=== PATIENT | male | born 1950 | race Caucasian/White ===

== ENCOUNTER 2018-03-21 10:47 | Emergency (ER) | payer OTHER ==
--- NOTE | 2018-03-21 13:04 | RAD REPORT ---
EXAM DESCRIPTION: CT - [id number] - 03/21/2018 12:53 pm CLINICAL HISTORY: Trauma, head and neck injury. History of fall COMPARISON: No comparisons TECHNIQUE: Axial 5 mm thick images of the head were obtained. Axial 2 mm thick images of the cervical spine were obtained with sagittal and coronal reconstruction images generated and reviewed. All CT scans are performed using dose optimization technique as appropriate and may include automated exposure control or mA/KV adjustment according to patient size. FINDINGS: CT HEAD WITHOUT CONTRAST: No acute hemorrhage, hydrocephalus or extra-axial collection is identified.No areas of brain edema or midline shift. The paranasal sinuses and mastoids are clear.The calvarium is intact. CT CERVICAL SPINE WITHOUT CONTRAST: No fracture or subluxation.Moderate mid and lower cervical degenerative changes.No prevertebral soft tissues swelling is identified. IMPRESSION: No acute intracranial or cervical spine findings. Mid and lower cervical spondylosis.
--- NOTE | 2018-03-21 14:06 | ER ---
Nurse's Notes [facility] Name: Payam Baeza Age: 67 yrs Sex: Male : 1950 Arrival Date: 03/21/2018 Time: 10:50 Bed Treatment Private MD: Unknown, Unknown Diagnosis: Laceration without foreign body of unspecified part of head Presentation: 03/21 10:52 Presenting complaint: Patient states: at about 0230 this morning I tripped in the fields la1 on the way to the bathroom and cut my scalp on the wall. Pt denies LOC. Transition of care: patient was not received from another setting of care. Onset of symptoms was March 21, 2018. Risk Assessment: Do you want to hurt yourself or someone else? Patient reports no desire to harm self or others. Initial Sepsis Screen: Does the patient meet any 2 criteria? No. Patient's initial sepsis screen is negative. Does the patient have a suspected source of infection? No. Patient's initial sepsis screen is negative. Care prior to arrival: None. 10:52 Method Of Arrival: Ambulatory la1 10:52 Acuity: ANNY 4 la1 Triage Assessment: 14:20 General: Appears in no apparent distress. Behavior is calm, cooperative. iw Historical: - Allergies: 10:53 No Known Allergies; la1 - PMHx: 10:53 None; la1 - Immunization history:: Adult Immunizations up to date. - Social history:: Smoking status: Patient/guardian denies using tobacco. - Ebola Screening: : No symptoms or risks identified at this time. Screenin:30 Abuse screen: Denies threats or abuse. Denies injuries from another. Nutritional iw screening: No deficits noted. Tuberculosis screening: No symptoms or risk factors identified. Fall Risk None identified. Assessment: 13:30 General: Appears in no apparent distress. comfortable, Behavior is calm, cooperative. iw Pain: Complains of pain in back of head. Neuro: Level of Consciousness is awake, alert, obeys commands, Oriented to person, place, time, situation, Moves all extremities. Full function. Cardiovascular: Patient's skin is warm and dry. Respiratory: Respiratory effort is even, unlabored, Respiratory pattern is regular. Derm: Skin is intact, is healthy with good turgor. Musculoskeletal: Range of motion: intact in all extremities. Injury Description: Laceration sustained to back of head is 0.5 to 2.5 cm long. Vital Signs: 10:53 BP 124 / 73; Pulse 68; Resp 18; Temp 97.4; Pulse Ox 98% on R/A; Weight 90.72 kg; Height la1 5 ft. 11 in. (180.34 cm); 10:53 Body Mass Index 27.89 (90.72 kg, 180.34 cm) la1 ED Course: 10:50 Patient arrived in ED. mr 10:51 Unknown, Unknown is Private Physician. mr 10:53 Triage completed. la1 10:54 Arm band placed on right wrist. la1 12:22 Melida Martinez, RN is Primary Nurse. iw 12:30 Farrukh Vera NP is PHCP. pm1 12:30 Alexandru Vela MD is Attending Physician. pm1 12:[address] via wheelchair. kc3 12:51 CT completed. Patient moved back from CT. bq 12:52 CT Head C Spine In Process Unspecified. EDMS 13:30 Patient has correct armband on for positive identification. iw 14:20 No provider procedures requiring assistance completed. Patient did not have IV access iw during this emergency room visit. Administered Medications: No medications were administered Outcome: 14:06 Discharge ordered by MD. pm1 14:21 Discharged to home ambulatory, with family. iw 14:21 Condition: good 14:21 Discharge instructions given to patient, Instructed on discharge instructions, follow up and referral plans. Demonstrated understanding of instructions, follow-up care. 14:22 Patient left the ED. iw Signatures: Dispatcher [employer] EDWY Kim Emmanuel mr Duran Maia Melida Martinez RN RN iw Gene Grajeda RN RN la1 Farrukh Vera NP NURSING ATTENDANT pm1 Tonia Villanueva kc3
--- NOTE | 2018-03-21 14:06 | EDPHYS ---
Physician Documentation [facility] Name: Payam Baeza Age: 67 yrs Sex: Male : 1950 Arrival Date: 03/21/2018 Time: 10:50 Bed Treatment Private MD: Unknown, Unknown ED Physician Alexandru Vela HPI: 03/21 14:00 This 67 yrs old Male presents to ER via Ambulatory with complaints of pm1 Laceration To Head. 14:00 The patient has a laceration occurred at home. The laceration(s) is(are) located on the pm1 back of head. Onset: The symptoms/episode began/occurred this morning. Associated signs and symptoms: Pertinent positives: neck pain, Pertinent negatives: deformity, dizziness, heavy bleeding, loss of consciousness, suspected foreign body. The patient has not experienced similar symptoms in the past. The patient has not recently seen a physician. Patient walking to the restroom and tripped hitting his head against door or wall. No LOC or headache. Positive for right sided neck pain. Historical: - Allergies: 10:53 No Known Allergies; la1 - PMHx: 10:53 None; la1 - Immunization history:: Adult Immunizations up to date. - Social history:: Smoking status: Patient/guardian denies using tobacco. - Ebola Screening: : No symptoms or risks identified at this time. ROS: 14:00 Constitutional: Negative for fever, chills, and weight loss, Eyes: Negative for injury, pm1 pain, redness, and discharge, ENT: Negative for injury, pain, and discharge. 14:00 Neck: Positive for pain with movement, right side of neck. 14:00 Cardiovascular: Negative for chest pain, palpitations, and edema, Respiratory: Negative pm1 for shortness of breath, cough, wheezing, and pleuritic chest pain, Abdomen/GI: Negative for abdominal pain, nausea, vomiting, diarrhea, and constipation, Back: Negative for injury and pain, : Negative for injury, bleeding, discharge, and swelling, MS/Extremity: Negative for injury and deformity, Neuro: Negative for headache, weakness, numbness, tingling, and seizure. 14:00 Skin: Positive for laceration(s), of the right side of the back of head. pm1 Exam: 14:00 Constitutional: This is a well developed, well nourished patient who is awake, alert, pm1 and in no acute distress. Eyes: Pupils equal round and reactive to light, extra-ocular motions intact. Lids and lashes normal. Conjunctiva and sclera are non-icteric and not injected. Cornea within normal limits. Periorbital areas with no swelling, redness, or edema. ENT: Nares patent. No nasal discharge, no septal abnormalities noted. Tympanic membranes are normal and external auditory canals are clear. Oropharynx with no redness, swelling, or masses, exudates, or evidence of obstruction, uvula midline. Mucous membranes moist. 14:00 Chest/axilla: Normal chest wall appearance and motion. Nontender with no deformity. No lesions are appreciated. Cardiovascular: Regular rate and rhythm with a normal S1 and S2. No gallops, murmurs, or rubs. Normal PMI, no JVD. No pulse deficits. Respiratory: Lungs have equal breath sounds bilaterally, clear to auscultation and percussion. No rales, rhonchi or wheezes noted. No increased work of breathing, no retractions or nasal flaring. Abdomen/GI: Soft, non-tender, with normal bowel sounds. No distension or tympany. No guarding or rebound. No evidence of tenderness throughout. Back: No spinal tenderness. No costovertebral tenderness. Full range of motion. Skin: Warm, dry with normal turgor. Normal color with no rashes, no lesions, and no evidence of cellulitis. MS/ Extremity: Pulses equal, no cyanosis. Neurovascular intact. Full, normal range of motion. 14:00 Head/face: Noted is no obvious of injury or deformity except a laceration(s), that is linear, 3 cm(s). 14:00 Neck: External neck: crepitus, is not appreciated, tenderness, of the right posterior aspect of neck and right lateral aspect of neck, C-spine: vertebral tenderness, is not appreciated. Vital Signs: 10:53 BP 124 / 73; Pulse 68; Resp 18; Temp 97.4; Pulse Ox 98% on R/A; Weight 90.72 kg; Height la1 5 ft. 11 in. (180.34 cm); 10:53 Body Mass Index 27.89 (90.72 kg, 180.34 cm) la1 Laceration: 14:00 Wound Repair of 3cm ( 1.2in ) subcutaneous laceration to right side of the back of pm1 head. Linear shaped.. Distal neuro/vascular/tendon intact. Wound prep: Extensive cleansing with hibiclenz by me, Wound irrigation with saline by me, Wound explored extensively, Copious irrigation. Skin closed with 4 1-0 Daphnie using simple sutures and sterile technique. Patient tolerated well. MDM: 12:35 Patient medically screened. pm1 14:05 Data reviewed: vital signs. Data interpreted: Pulse oximetry: on room air is 98 %. pm1 Interpretation: normal. Counseling: I had a detailed discussion with the patient and/or guardian regarding: the historical points, exam findings, and any diagnostic results supporting the discharge/admit diagnosis, radiology results, the need for outpatient follow up, to return to the emergency department if symptoms worsen or persist or if there are any questions or concerns that arise at home. 03/21 12:36 Order name: CT Head C Spine; Complete Time: 13:41 pm1 03/21 12:36 [place] [facility]: Staple gun; Complete Time: 12:39 pm1 Administered Medications: No medications were administered Disposition: 03/21/18 14:06 Discharged to Home. Impression: Laceration without foreign body of unspecified part of head. - Condition is Stable. - Discharge Instructions: Head Injury, Adult, Stitches, [place], or Adhesive Wound Closure. - Medication Reconciliation Form, Thank You Letter form. - Follow up: Emergency Department; When: As needed; Reason: Worsening of condition. Follow up: Private Physician; When: 10 - 14 days; Reason: Recheck today's complaints, Continuance of care, Staple/Suture removal, Re-evaluation by your physician. - Problem is new. - Symptoms have improved. Addendum: 04/01/2018 15:30 Co-signature as Attending Physician, Alexandru Vela MD Available for consultation at p s1 all times. . Signatures: Dispatcher [employer] EDMS Melida Martinez RN RN iw Gene Grajeda RN RN la1 Farrukh Vera, [employer] SUPERVISOR [employer] SUPERVISOR pm1 Alexandru Vela MD MD ps1 Corrections: (The following items were deleted from the chart) 03/21 14:22 14:06 03/21/2018 14:06 Discharged to Home. Impression: Laceration without foreign body iw of unspecified part of head. Condition is Stable. Forms are Medication Reconciliation Form, Thank You Letter, Antibiotic Education, Prescription Opioid Use. Follow up: Emergency Department; When: As needed; Reason: Worsening of condition. Follow up: Private Physician; When: 10 - 14 days; Reason: Recheck today's complaints, Continuance of care, Staple/Suture removal, Re-evaluation by your physician. Problem is new. Symptoms have improved. pm1 22:31 14:00 Cardiovascular: Negative for chest pain, palpitations, and edema, Respiratory: pm1 Negative for shortness of breath, cough, wheezing, and pleuritic chest pain, Abdomen/GI: Negative for abdominal pain, nausea, vomiting, diarrhea, and constipation, Back: Negative for injury and pain, : Negative for injury, bleeding, discharge, and swelling, MS/Extremity: Negative for injury and deformity, Skin: Negative for injury, rash, and discoloration, Neuro: Negative for headache, weakness, numbness, tingling, and seizure, pm1
== END 2018-03-21 14:22 | disposition home or self-care (01) ==
LOC: ER 10:47
PROC: 0JQ00ZZ Repair Scalp Subcutaneous Tissue and Fascia, Open Approach (ICD-10-PCS; principal; 2018-03-21)
DX: S01.01XA Laceration without foreign body of scalp, initial encounter (principal); W18.40XA Slipping, tripping and stumbling without falling, unspecified, initial encounter; W22.8XXA Striking against or struck by other objects, initial encounter
CPT/HCPCS: 70450; 72125; 99284

== ENCOUNTER 2018-04-02 06:18 | Emergency (ER) | payer OTHER ==
--- NOTE | 2018-04-02 06:31 | EDPHYS ---
Physician Documentation [facility] Name: Payam Baeza Age: 67 yrs Sex: Male : 1950 Arrival Date: 04/02/2018 Time: 06:19 Bed 13 Private MD: ED Physician Michael Canseco HPI: 04/02 06:31 This 67 yrs old Male presents to ER via Ambulatory with complaints of Suture jr8 Removal. 06:31 The patient has claudy on the scalp. Previous treatment: The patient was initially jr8 treated 11 day(s) ago. Sutures/claudy progress: The patient has no c/o's. The wound is well-healing with no redness, swelling, discharge, or dehiscence reported. The patient has not experienced similar symptoms in the past. The patient has not recently seen a physician. Historical: - Allergies: 06:28 No Known Allergies; fc - Home Meds: 06:28 Etodolac Oral once daily [Active]; fc - PMHx: 06:28 Arthritis; fc - PSHx: 06:28 Knee surgery; leg surg; arm surg; fc - Immunization history:: Last tetanus immunization: up to date Flu vaccine is up to date. - Social history:: Smoking status: Patient/guardian denies using tobacco, Patient/guardian denies using alcohol, street drugs. - Ebola Screening: : Patient negative for fever greater than or equal to 101.5 degrees Fahrenheit, and additional compatible Ebola Virus Disease symptoms Patient denies exposure to infectious person Patient denies travel to an Ebola-affected area in the 21 days before illness onset. ROS: 06:31 Eyes: Negative for injury, pain, redness, and discharge, ENT: Negative for injury, jr8 pain, and discharge, Neck: Negative for injury, pain, and swelling, Cardiovascular: Negative for chest pain, palpitations, and edema, Respiratory: Negative for shortness of breath, cough, wheezing, and pleuritic chest pain, Abdomen/GI: Negative for abdominal pain, nausea, vomiting, diarrhea, and constipation, Back: Negative for injury and pain, MS/Extremity: Negative for injury and deformity, Neuro: Negative for headache, weakness, numbness, tingling, and seizure. Exam: 06:31 Head/Face: Normocephalic, atraumatic. Eyes: Pupils equal round and reactive to light, jr8 extra-ocular motions intact. Lids and lashes normal. Conjunctiva and sclera are non-icteric and not injected. Cornea within normal limits. Periorbital areas with no swelling, redness, or edema. ENT: Nares patent. No nasal discharge, no septal abnormalities noted. Tympanic membranes are normal and external auditory canals are clear. Oropharynx with no redness, swelling, or masses, exudates, or evidence of obstruction, uvula midline. Mucous membranes moist. Neck: Trachea midline, no thyromegaly or masses palpated, and no cervical lymphadenopathy. Supple, full range of motion without nuchal rigidity, or vertebral point tenderness. No Meningismus. Cardiovascular: Regular rate and rhythm with a normal S1 and S2. No gallops, murmurs, or rubs. Normal PMI, no JVD. No pulse deficits. Respiratory: Lungs have equal breath sounds bilaterally, clear to auscultation and percussion. No rales, rhonchi or wheezes noted. No increased work of breathing, no retractions or nasal flaring. Abdomen/GI: Soft, non-tender, with normal bowel sounds. No distension or tympany. No guarding or rebound. No evidence of tenderness throughout. Back: No spinal tenderness. No costovertebral tenderness. Full range of motion. MS/ Extremity: Pulses equal, no cyanosis. Neurovascular intact. Full, normal range of motion. Neuro: Awake and alert, GCS 15, oriented to person, place, time, and situation. Cranial nerves II-XII grossly intact. Motor strength 5/5 in all extremities. Sensory grossly intact. Cerebellar exam normal. Normal gait. 06:31 Skin: Wound recheck: Staple laceration closure: the wound is healing well, the edges are well approximated, no evidence of dehiscence, no drainage, no erythema, no swelling. Vital Signs: 06:20 BP 138 / 76; Pulse 70; Resp 18; Temp 98.0(O); Pulse Ox 99% on R/A; Weight 90.72 kg (R); fc Height 5 ft. 11 in. (180.34 cm) (R); Pain 0/10; 06:20 Body Mass Index 27.89 (90.72 kg, 180.34 cm) Procedures: 06:31 Suture/Staple removal: Removed 4 claudy, from scalp, site appears well healed, Patient jr8 tolerated well. MDM: 06:22 Patient medically screened. jr8 06:28 Data reviewed: vital signs, nurses notes, and as a result, I will discharge patient. 8 Data interpreted: Pulse oximetry: on room air is 99 %. Interpretation: normal. Counseling: I had a detailed discussion with the patient and/or guardian regarding: the historical points, exam findings, and any diagnostic results supporting the discharge/admit diagnosis, the need for outpatient follow up, a family practitioner, to return to the emergency department if symptoms worsen or persist or if there are any questions or concerns that arise at home. Administered Medications: No medications were administered Disposition: 07:02 Co-signature as Attending Physician, Michael Canseco MD I agree with the assessment and [facility] plan of care. Disposition: 04/02/18 06:30 Discharged to Home. Impression: Encounter for removal of sutures. - Condition is Stable. - Discharge Instructions: Stitches, [place], or Adhesive Wound Closure, Suture Removal, Care After. - Medication Reconciliation Form, Thank You Letter, Antibiotic Education, Prescription Opioid Use form. - Follow up: Private Physician; When: As needed; Reason: Wound Recheck, Recheck today's complaints, Continuance of care, Re-evaluation by your physician. - Problem is new. - Symptoms have improved. Signatures: Michael Canseco MD MD cha Chretien, Felicia, RN RN Fred Samaniego PA PA jr8 Corrections: (The following items were deleted from the chart) 06:35 06:30 04/02/2018 06:30 Discharged to Home. Impression: Encounter for removal of fc sutures. Condition is Stable. Forms are Medication Reconciliation Form, Thank You Letter, Antibiotic Education, Prescription Opioid Use. Follow up: Private Physician; When: As needed; Reason: Wound Recheck, Recheck today's complaints, Continuance of care, Re-evaluation by your physician. Problem is new. Symptoms have improved. jr8
--- NOTE | 2018-04-02 06:31 | ER ---
Nurse's Notes [facility] Name: Payam Baeza Age: 67 yrs Sex: Male : 1950 Arrival Date: 04/02/2018 Time: 06:19 Bed 13 Private MD: Diagnosis: Encounter for removal of sutures Presentation: 04/02 06:20 Presenting complaint: Patient states: that he is just needing his claudy x 4 removed. fc Been in x 12 days. Transition of care: patient was not received from another setting of care. Onset of symptoms was April 02, 2018. Risk Assessment: Do you want to hurt yourself or someone else? Patient reports no desire to harm self or others. Initial Sepsis Screen: Does the patient meet any 2 criteria? No. Patient's initial sepsis screen is negative. Does the patient have a suspected source of infection? No. Patient's initial sepsis screen is negative. Care prior to arrival: None. 06:20 Method Of Arrival: Ambulatory fc 06:20 Acuity: ANNY 5 fc Triage Assessment: 06:20 General: Appears in no apparent distress. comfortable, well groomed, Behavior is calm, fc cooperative, appropriate for age. Pain: Denies pain. EENT: No deficits noted. Neuro: Level of Consciousness is awake, alert, obeys commands, Oriented to person, place, time, situation, Appropriate for age. Cardiovascular: No deficits noted. Respiratory: No deficits noted. GI: No deficits noted. : No deficits noted. Derm: Skin is pink, warm \T\ dry. 4 claudy to right scalp. Musculoskeletal: Circulation, motion, and sensation intact. Capillary refill < 3 seconds, Range of motion: intact in all extremities. Historical: - Allergies: 06:28 No Known Allergies; fc - Home Meds: 06:28 Etodolac Oral once daily [Active]; fc - PMHx: 06:28 Arthritis; fc - PSHx: 06:28 Knee surgery; leg surg; arm surg; fc - Immunization history:: Last tetanus immunization: up to date Flu vaccine is up to date. - Social history:: Smoking status: Patient/guardian denies using tobacco, Patient/guardian denies using alcohol, street drugs. - Ebola Screening: : Patient negative for fever greater than or equal to 101.5 degrees Fahrenheit, and additional compatible Ebola Virus Disease symptoms Patient denies exposure to infectious person Patient denies travel to an Ebola-affected area in the 21 days before illness onset. Screenin:29 Abuse screen: Denies threats or abuse. Nutritional screening: No deficits noted. Tuberculosis screening: No symptoms or risk factors identified. Fall Risk None identified. Assessment: 06:27 Reassessment: see triage assessments. 06:29 Reassessment: Fred MCGARRY in to take claudy out. Vital Signs: 06:20 BP 138 / 76; Pulse 70; Resp 18; Temp 98.0(O); Pulse Ox 99% on R/A; Weight 90.72 kg (R); fc Height 5 ft. 11 in. (180.34 cm) (R); Pain 0/10; 06:20 Body Mass Index 27.89 (90.72 kg, 180.34 cm) ED Course: 06:19 Patient arrived in ED. es 06:20 Arm band placed on Patient placed in an exam room, on a stretcher. 06:22 [facility] Lyle [facility] 06:22 Michael Canseco MD is Attending Physician. jr8 06:26 Triage completed. 06:29 Patient has correct armband on for positive identification. Bed in low position. Call fc light in reach. 06:29 No provider procedures requiring assistance completed. Patient did not have IV access fc during this emergency room visit. Administered Medications: No medications were administered Outcome: 06:30 Discharge ordered by . jr8 06:31 Discharged to home ambulatory. 06:31 Condition: good 06:31 Discharge instructions given to patient, Instructed on discharge instructions, follow up and referral plans. wound care, Demonstrated understanding of instructions, follow-up care, wound care, Prescriptions given X none 06:35 No charge visit due to (staple removal). 06:35 Patient left the ED. Signatures: Tatum Bazzi Felicia, RN RN Fred Lyle PA PA jrTali
== END 2018-04-02 06:35 | disposition home or self-care (01) ==
LOC: ER 06:18
DX: Z48.02 Encounter for removal of sutures (principal)

== ENCOUNTER 2022-09-26 05:45 | Emergency (ER) | payer OTHER ==
[2022-09-26] MEDS ORDERED: LIDOCAINE 1% MPF 30 ML VIAL ONE (06:24)
--- NOTE | 2022-09-26 08:21 | ER ---
Nurse's Notes [facility] Name: Payam Baeza Age: 71 yrs Sex: Male : 1950 Arrival Date: 09/26/2022 Time: 05:45 Bed 13 Private MD: Diagnosis: Right great toe distal phalanx fracture without displacement. Right second toe metatarsal phalangeal joint dislocation, right foot crushing injury with contusion with hematoma, right great toe abrasion. Presentation: 09/26 05:55 Chief complaint: Patient states: pt dropped a 40 lbs weight on his foot. Coronavirus as6 screen: At this time, the client does not indicate any symptoms associated with coronavirus-19. Ebola Screen: No symptoms or risks identified at this time. Initial Sepsis Screen: Does the patient meet any 2 criteria? No. Patient's initial sepsis screen is negative. Does the patient have a suspected source of infection? No. Patient's initial sepsis screen is negative. Risk Assessment: Do you want to hurt yourself or someone else? Patient reports no desire to harm self or others. Onset of symptoms was September 26, 2022. 05:55 Acuity: ANNY 4 as6 05:55 Method Of Arrival: Ambulatory as6 Triage Assessment: 09:00 General: Appears in no apparent distress. comfortable, Behavior is calm, cooperative, os appropriate for age. Pain: Complains of pain in left foot. Cardiovascular: No deficits noted. Respiratory: No deficits noted. GI: No deficits noted. Musculoskeletal: Laceration on grt toe with dislocation. Tenderness present in left foot. Injury Description: Laceration sustained to left foot. Historical: - Allergies: 05:55 No Known Allergies; as6 - PMHx: 05:55 Arthritis; as6 - PSHx: 05:55 knee; eye; shoulder; as6 - Immunization history:: Client reports receiving the 2nd dose of the Covid vaccine, moderna. - Social history:: Smoking status: Patient denies any tobacco usage or history of. - Family history:: not pertinent. Screenin:59 [facility] ED Fall Risk Assessment (Adult) History of falling in the last 3 months, os including since admission No falls in past 3 months (0 pts) Confusion or Disorientation No (0 pts) Intoxicated or Sedated No (0 pts) Impaired Gait No (0 pts) Mobility Assist Device Used No (0 pt) Altered Elimination No (0 pt) Score/Fall Risk Level 0 - 2 = Low Risk Oriented to surroundings. Abuse screen: Denies threats or abuse. Nutritional screening: No deficits noted. Tuberculosis screening: No symptoms or risk factors identified. Vital Signs: 05:55 BP 147 / 78; Pulse 77; Resp 19 S; Temp 98.1(O); Pulse Ox 95% on R/A; Weight 90.72 kg as6 (R); Height 5 ft. 11 in. (R); Pain 5/10; 09:14 BP 122 / 74; Pulse 75; Resp 16; Pulse Ox 99% on R/A; os 05:55 Body Mass Index 27.89 (90.72 kg, 180.34 cm) as6 05:55 Pain Scale: Adult as6 ED Course: 05:48 Patient arrived in ED. jj6 05:55 Arm band placed on. as6 05:58 Triage completed. as6 06:08 Wes Villanueva MD is Attending Physician. sp4 06:17 XRAY Foot RIGHT 3 View In Process Unspecified. EDMS 07:13 Raquel Bautista, JESSICA is Primary Nurse. os 07:50 Foot Right 2 View XRAY In Process Unspecified. EDMS 09:04 No provider procedures requiring assistance completed. Patient did not have IV access os during this emergency room visit. 09:07 Patient has correct armband on for positive identification. 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 os Exp: 12/21/2022. Lot #: [id number]. } Route: IM; Site: left deltoid; 08:59 Drug: Trimethoprim-Sulfamethoxazole PO (160 mg-800 mg (DS) 1 tablet Route: PO; os Medication: 09:07 VIS not applicable for this client. os Outcome: 08:20 Discharge ordered by . sp4 09:04 Discharged to home ambulatory. os 09:04 Condition: improved 09:04 Discharge instructions given to patient, Instructed on discharge instructions, follow up and referral plans. medication usage, Demonstrated understanding of instructions, follow-up care, medications, Prescriptions given X 2. 09:17 Patient left the ED. os Signatures: Dispatcher [facility] EDOR Sandie Brink jj6 Jared Currie RN RN as6 Wes Villanueva MD MD sp4 Raquel Bautista RN RN os
--- NOTE | 2022-09-26 08:21 | EDPHYS ---
Physician Documentation [facility] Name: Payam Baeza Age: 71 yrs Sex: Male : 1950 Arrival Date: 09/26/2022 Time: 05:45 Bed 13 Private MD: ED Physician Wes Villanueva HPI: 09/26 06:08 This 71 yrs old Male presents to ER via Ambulatory with complaints of Foot sp4 Injury. 08:09 Patient presents because he dropped a dumbbell under his right foot and developed right sp4 second toe deformity and also pain in the right great toe. This happened just prior to arrival. Historical: - Allergies: 05:55 No Known Allergies; as6 - PMHx: 05:55 Arthritis; as6 - PSHx: 05:55 knee; eye; shoulder; as6 - Immunization history:: Client reports receiving the 2nd dose of the Covid vaccine, moderna. - Social history:: Smoking status: Patient denies any tobacco usage or history of. - Family history:: not pertinent. ROS: 08:10 Constitutional: Negative for fever, chills, and weight loss, Eyes: Negative for injury, sp4 pain, redness, and discharge, MS/Extremity: Positive for right foot injury, right second toe deformity, right foot discoloration, right great toe pain and abrasion, right foot dorsal abrasion Skin: Negative for rash, and discoloration, positive for right foot abrasion 08:10 All other systems are negative. Exam: 08:10 Constitutional: This is a well developed, well nourished patient who is awake, alert, sp4 and in no acute distress. Head/Face: Normocephalic, atraumatic. Eyes: Pupils equal round and reactive to light, extra-ocular motions intact. Lids and lashes normal. Conjunctiva and sclera are not injected. Cornea within normal limits. Periorbital areas with no swelling, redness, or edema. ENT: Nares patent. No nasal discharge, no septal abnormalities noted. Tympanic membranes are normal and external auditory canals are clear. Oropharynx with no redness, swelling, or masses, exudates, or evidence of obstruction, uvula midline. Mucous membranes moist. Neck: Trachea midline, no thyromegaly or masses palpated, and no cervical lymphadenopathy. Supple, full range of motion without nuchal rigidity, or vertebral point tenderness. Chest/axilla: Normal chest wall appearance and motion. Nontender with no deformity. No lesions are appreciated. Cardiovascular: Regular rate and rhythm with a normal S1 and S2. No gallops, murmurs, or rubs. Normal PMI, no JVD. No pulse deficits. Respiratory: Lungs have equal breath sounds bilaterally, clear to auscultation and percussion. No rales, rhonchi or wheezes noted. No increased work of breathing, no retractions or nasal flaring. Abdomen/GI: Soft, non-tender, with normal bowel sounds. No distension or tympany. No guarding or rebound. No evidence of tenderness throughout. Back: No spinal tenderness. No costovertebral tenderness. Skin: Warm, dry with normal turgor. Normal color with no rashes, no lesions, and no evidence of cellulitis. The right foot abrasions and discoloration from recent injury MS/ Extremity: Pulses equal, no cyanosis. Neurovascular intact. There is a right foot discoloration to the dorsal surface, hematoma from recent contusion right second toe deformity indicative of either fracture or dislocation, right great toe swelling contusion and abrasion with subungual hematoma Neuro: Awake and alert, GCS 15, oriented to person, place, time, and situation. Cranial nerves II-XII grossly intact. Motor strength 5/5 in all extremities. Sensory grossly intact. Psych: Awake, alert, with orientation to person, place and time. Behavior, mood, and affect are within normal limits Vital Signs: 05:55 BP 147 / 78; Pulse 77; Resp 19 S; Temp 98.1(O); Pulse Ox 95% on R/A; Weight 90.72 kg as6 (R); Height 5 ft. 11 in. (R); Pain 5/10; 09:14 BP 122 / 74; Pulse 75; Resp 16; Pulse Ox 99% on R/A; os 05:55 Body Mass Index 27.89 (90.72 kg, 180.34 cm) as6 05:55 Pain Scale: Adult as6 Procedures: 08:10 Splinting: Splint applied to right foot using Ortho 3D boot, applied by myself. post sp4 reduction film - reveals normal alignment, Examined by me, post splint application: neurovascular intact, 2+ distal pulses palpable, brisk capillary refill noted, Patient tolerated well. Reduction: of the Right foot second toe metatarsophalangeal joint dislocation reduction, using traction, manipulation, Flexion and extension, Immobilized with Reduced right second toe was parminder taped to the right third toe abrasions were cleaned and sterile dressing was applied with Kerlix. Right foot Ortho boot was applied for stability secondary to the fracture of the right great toe. Patient tolerated well. Post reduction film - reveals normal alignment. Wound care instructions were provided will advise patient to see orthopedist in 2 weeks for repeat x-ray . MDM: 06:12 Patient medically screened. sp4 08:10 Differential diagnosis: fracture, sprain, foreign body, penetrating trauma, arthritis, sp4 cellulitis. Data reviewed: vital signs, nurses notes, radiologic studies, plain films. Consideration of Admission/Observation Escalation of care including admission/observation considered. 08:10 ED course: Second toe was reduced after lidocaine infiltration, and digital block. sp4 Patient was given Ortho boot for stability, he was told that he can walk on his right heel without putting pressure on his right toes. Will provide crutches as well. Will advise orthopedist follow-up in 2 weeks for repeat x-ray of the right foot . We will also advise dressing changes for right great toe and foot abrasions. Will prescribe Bactrim p.o. twice a day for 10 days to prevent infection of the right foot. ED course: X-ray report -- EXAM: Foot Right 3 View CLINICAL DATA: 71 years Male Pain;Swelling TECHNICAL DATA: Three x-ray views of the right foot were performed on 09/26/2022 at 6:08 AM. COMPARISONS: None FINDINGS: There is a nondisplaced possibly comminuted fracture to the midportion of the distal phalanx of the first digit of the right foot and there is dislocation of the proximal interphalangeal joint of the second digit of the right foot. There is a tiny plantar calcaneal spur. There are minimal degenerative changes of the midfoot and hindfoot. There is a slight hallux valgus deformity. Bone mineralization is normal. No definite focal soft tissue abnormalities are appreciated. There is no evidence of subcutaneous emphysema or radiopaque foreign body. IMPRESSION: 1. Nondisplaced, possibly comminuted fracture to the midportion of the distal phalanx of the first digit of the right foot. 2. Dislocation of the proximal interphalangeal joint of the second digit of the right foot without definite acute fracture. 3. Mild degenerative changes of the midfoot and hindfoot. . 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 os Exp: 12/21/2022. Lot #: [id number]. } Route: IM; Site: left deltoid; 08:59 Drug: Trimethoprim-Sulfamethoxazole PO (160 mg-800 mg (DS) 1 tablet Route: PO; os Disposition Summary: 09/26/22 08:20 Discharge Ordered Location: Home sp4 Problem: new sp4 Symptoms: have improved sp4 Condition: Stable sp4 Diagnosis - Right great toe distal phalanx fracture without displacement. Right second toe sp4 metatarsal phalangeal joint dislocation, right foot crushing injury with contusion with hematoma, right great toe abrasion. Followup: sp4 - With: Private Physician - When: 10 - 14 days - Reason: Recheck today's complaints Discharge Instructions: - Discharge Summary Sheet sp4 - Toe Fracture, [id number] sp4 Forms: - [email or web address] sp4 Prescriptions: - Ibuprofen 600 mg Oral Tablet - take 1 tablet by ORAL route every 6 hours As needed take with food; 30 tablet; sp4 Refills: 0, Product Selection Permitted - Bactrim DS 800-160 mg Oral Tablet - take 1 tablet by ORAL route every 12 hours for 10 days; 20 tablet; Refills: 0, sp4 Product Selection Permitted Signatures: Dispatcher MedHoJared Ingram, RN RN as6 Wes Villanueva MD MD sp4 Raquel Bautista, RN RN os
--- NOTE | 2022-09-26 08:32 | RAD REPORT ---
EXAM DESCRIPTION: RAD - Foot Right 2 View - 09/26/2022 7:48 am CLINICAL HISTORY: after toe reduction COMPARISON: Foot Right 3 View dated 09/26/2022 TECHNIQUE: Right foot, 2 views. FINDINGS: Stable alignment of mildly comminuted first digit distal phalanx fracture. Improved alignm ent of the second digit proximal interphalangeal joint following closed reduction. No other acute oss eous abnormalities. No air or foreign body in the soft tissues. IMPRESSION: As above.
[2022-09-26] MEDS ORDERED: SMZ./TMP. 800/160 MG TABLET ONE (09:00)
[2022-09-26] MEDS ORDERED: TETANUS & DIPHTHERIA TOX,ADULT 0.5 ML VIAL ONE (09:00)
[2022-09-26 09:21] VITALS: TEMP 98.1
[2022-09-26 09:22] VITALS: BP 122/74; O2SAT 99
--- NOTE | 2022-09-26 11:52 | RAD REPORT ---
EXAM DESCRIPTION: RAD - Foot Right 3 View - 09/26/2022 6:15 am CLINICAL HISTORY: 71 years Male Pain;Swelling TECHNIQUE: Three x-ray views of the right foot were performed on 09/26/2022 at 6:08 AM. COMPARISON: None FINDINGS: There is a nondisplaced possibly comminuted fracture to the midportion of the distal phala nx of the first digit of the right foot and there is dislocation of the proximal interphalangeal join t of the second digit of the right foot. There is a tiny plantar calcaneal spur. There are minimal de generative changes of the midfoot and hindfoot. There is a slight hallux valgus deformity. Bone mineralization is normal. No definite focal soft tissue abnormalities are appreciated. There is no evidence of subcutaneous emp hysema or radiopaque foreign body. IMPRESSION: 1. Nondisplaced, possibly comminuted fracture to the midportion of the distal phalanx of the first digit of the right foot. 2. Dislocation of the proximal interphalangeal joint of the second digit of the right foot without definite acute fracture. 3. Mild degenerative changes of the midfoot and hindfoot. Electronically signed by: Angelika Dooley DO 09/26/2022 6:31 AM CDT Due to temporary technical issues with the PACS/Fluency reporting system, reports are being signed by the in house radiologist without review as a courtesy to ensure prompt reporting. The interpreting r adiologist is fully responsible for the content of the report.
== END 2022-09-26 09:17 | disposition home or self-care (01) ==
LOC: ER 05:45
PROC: 0SSMXZZ Reposition Right Metatarsal-Phalangeal Joint, External Approach (ICD-10-PCS; principal; 2022-09-26)
DX: S92.424A Nondisplaced fracture of distal phalanx of right great toe, initial encounter for closed fracture (principal); S93.124A Dislocation of metatarsophalangeal joint of right lesser toe(s), initial encounter; S90.411A Abrasion, right great toe, initial encounter; W23.0XXA Caught, crushed, jammed, or pinched between moving objects, initial encounter; Z23 Encounter for immunization
CPT/HCPCS: 73630; 73620; 90471; 90714; 99284; 28630; J2001